=== PATIENT | female | born 1950 | race Caucasian/White ===

== ENCOUNTER → 2016-10-12 | Outpatient (CLI) | payer OTHER, BC ==
[2016-10-12 10:57] LABS: LDL CHOLESTEROL,CALCULATED 123.6 mg/dL
[2016-10-12 12:40] LABS: BLOOD UREA NITROGEN 20 mg/dL (7-22); BUN/CREATININE RATIO 33.33 (6-20); CALCIUM 9.8 mg/dL (8.7-10.7); CHLORIDE 100 meq/L (98-112); CREATININE 0.6 mg/dL (0.50-1.20); EST GLOMERULAR FILTRATION > 60 (>60 ml/min/1.73m(2)); GLUCOSE 92 mg/dL (78-110); POTASSIUM 3.8 meq/L (3.8-5.2); SODIUM 140 meq/L (135-145)
== END ==
LOC: LAB 09:52
PROVIDERS: ATTEND Specialist
DX: I73.9 Peripheral vascular disease, unspecified (principal); I10 Essential (primary) hypertension; E78.5 Hyperlipidemia, unspecified
CPT/HCPCS: 36415; 80048; 80061

== ENCOUNTER → 2016-10-16 | Outpatient (CLI) | payer OTHER, BC ==
--- NOTE | 2016-10-16 11:02 | EKG ---
[address] [place] [address] Measurements Intervals [place] Rate: 67 P: 39 MS: 189 QRS: -32 QRSD: 81 T: 40 QT: 399 QTc: 415 Interpretive Statements SINUS RHYTHM MARKED LEFT AXIS DEVIATION [QRS AXIS < -30] Compared to ECG 06/12/2016 15:14:17 Junctional rhythm no longer present Myocardial infarct finding no longer present Electronically Signed On 10-16-16 11:24:42 [facility] by Surya Carias [id number]
== END ==
LOC: MOB EKG 10:54
PROVIDERS: ATTEND Specialist
DX: I10 Essential (primary) hypertension (principal); I87.8 Other specified disorders of veins; R06.00 Dyspnea, unspecified
CPT/HCPCS: 93005; 93010

== ENCOUNTER → 2017-02-19 | Outpatient (CLI) | payer OTHER, BC ==
--- NOTE | 2017-02-19 10:44 | EKG ---
[address] [address] Measurements Intervals [place] Rate: 72 P: 71 [place]: 202 QRS: -16 QRSD: 80 T: 52 QT: 381 QTc: 406 Interpretive Statements SINUS RHYTHM Compared to ECG 10/16/2016 11:03:56 Left-axis deviation no longer present Electronically Signed On 02-19-17 15:03:34 [facility] by Surya Carias [id number]
== END ==
LOC: MOB EKG 10:33
PROVIDERS: ATTEND Specialist
DX: I47.1 Supraventricular tachycardia (principal); E78.2 Mixed hyperlipidemia; I10 Essential (primary) hypertension; I73.89 Other specified peripheral vascular diseases
CPT/HCPCS: 93005; 93010; 99213; G0463

== ENCOUNTER → 2017-05-07 | Outpatient (CLI) | payer OTHER, BC ==
--- NOTE | 2017-05-07 09:14 | EKG ---
[address] [address] Measurements Intervals [place] Rate: 69 P: 60 PA: 160 QRS: -39 QRSD: 100 T: 57 QT: 417 QTc: 436 Interpretive Statements SINUS RHYThM LEFT AXIS DEVIATION Compared to ECG 02/19/2017 10:49:16 Left-axis deviation now present Electronically Signed On 05-07-17 14:31:46 [facility] by Surya Carias [id number]
== END ==
LOC: MOB EKG 09:05
PROVIDERS: ATTEND Specialist
DX: I47.1 Supraventricular tachycardia (principal); E78.1 Pure hyperglyceridemia; G20 Parkinson's disease; I10 Essential (primary) hypertension; E03.9 Hypothyroidism, unspecified
CPT/HCPCS: 93005; 93010; 99213; G0463

== ENCOUNTER → 2017-05-21 | Outpatient (CLI) | payer OTHER, BC ==
--- NOTE | 2017-05-21 09:26 | EKG ---
[address] [address] Measurements Intervals [place] Rate: 59 P: 55 UT: 193 QRS: -9 QRSD: 78 T: 57 QT: 406 QTc: 404 Interpretive Statements SINUS RHYTHM Compared to ECG 05/07/2017 09:15:22 Left-axis deviation no longer present Electronically Signed On 05-21-17 11:43:50 [facility] by Surya Carias [id number]
== END ==
LOC: EKG 09:10
PROVIDERS: ATTEND Specialist
DX: I47.1 Supraventricular tachycardia (principal); E03.9 Hypothyroidism, unspecified; I10 Essential (primary) hypertension; E78.5 Hyperlipidemia, unspecified
CPT/HCPCS: 93005; 93010